=== PATIENT | male | born 1970 | race Caucasian/White ===

== ENCOUNTER → 2018-06-17 05:57 | Emergency (ER) | payer OTHER ==
[~2018-06-17 05:57] MED LIST: HYDROmorphone INJ* 2 MG/ML CARPUJECT SYRINGE IV SLOW PU ONE; Ketorolac INJ* 30 MG/ML 1 ML VIAL IV PUSH ONE; Morphine INJ* 2 MG/ML 1 ML SYRINGE (TWO MG - NEW SYRINGE VERSION) IV ONE; Morphine INJ* 2 MG/ML 1 ML SYRINGE (TWO MG - NEW SYRINGE VERSION) ONE; NS 0.9% 1000 ML* 1,000 ML IV ONE; Ondansetron INJ* 2 MG/ML VIAL IV ONE
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
[2018-06-17 07:19] LABS: Hematocrit 42 % (42-52); Hemoglobin 14.8 g/dl (14.0-18.0); Mean Corpuscular HGB Conc 35 g/dl (31-36); Mean Corpuscular Hemoglobin 32 pg (27-31); Mean Corpuscular Volume 92 fL (80-94); Mean Platelet Volume 7.6 um3 (7.4-10.4); Platelet Count 216 10^3/ul (150-450); Red Blood Count 4.61 10^6/ul (4.00-5.40); Red Cell Distribution Width 13 % (10.5-15); White Blood Count 9.2 10^3/ul (3.5-10.8)
[2018-06-17 07:34] LABS: EGFR Non-African American 83.7 (>60)
[2018-06-17 07:38] LABS: INR 0.97 (0.77-1.02)
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
[2018-06-17 09:39] VITALS: BP 101/60
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
== END | disposition home or self-care (01) ==
LOC: ED 05:57
CPT/HCPCS: 36415; 70450; 70486; 70490; 80048; 85027; 85610; 85730; J1170; J1885; J2270; J2405

== ENCOUNTER 2018-06-19 11:36 | Emergency (ER) | payer OTHER ==
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
[2018-06-19 12:18] VITALS: BP 129/79
== END 2018-06-19 12:17 | disposition home or self-care (01) ==
LOC: ED 11:36
DX: S02.609A Fracture of mandible, unspecified, initial encounter for closed fracture (principal); Y04.8XXA Assault by other bodily force, initial encounter; Y92.9 Unspecified place or not applicable; F17.200 Nicotine dependence, unspecified, uncomplicated
CPT/HCPCS: 99282

== ENCOUNTER → 2018-07-15 | Emergency (ER) | payer OTHER ==
--- NOTE | 2018-07-15 17:10 | ED ---
Throat Pain/Nasal Congestion - HPI Summary HPI Summary: This patient is a 47 year old M presenting to [facility] with a chief complaint of right-sided dental pain that began 5 days ago. The patient rates the pain 9/10 in severity. Symptoms aggravated by eating and swallowing. Symptoms alleviated by nothing. Patient denies fever. Patient states that he was diagnosed with a mandibular fracture one month ago. - History of Current Complaint Chief Complaint: EDHeadInjury Time Seen by Provider: 07/15/18 16:49 Hx Obtained From: Patient Onset/Duration: Sudden Onset, Lasting Days, Still Present Severity: Moderate Cough: None - Allergies/Home Medications Allergies/Adverse Reactions: Allergies Allergy/AdvReac Type Severity Reaction Status Date / Time amoxicillin [From Augmentin] Allergy GI Upset Verified 07/15/18 14:45 clavulanic acid Allergy GI Upset Verified 07/15/18 14:45 [From Augmentin] ENVIRONMENTAL Allergy Sneezing Uncoded 06/17/18 06:05 PMH/Surg Hx/FS Hx/Imm Hx Previously Healthy: No Endocrine/Hematology History: Denies: Hx Anticoagulant Therapy, Hx Blood Disorders Respiratory History: Reports: Hx Sleep Apnea Musculoskeletal History: Denies: Hx Scoliosis Sensory History: Reports: Hx Contacts or Glasses - GLASSES Denies: Hx Hearing Aid Opthamlomology History: Reports: Hx Contacts or Glasses - GLASSES Neurological History: Denies: Hx Headaches, Other Neuro Impairments/Disorders Psychiatric History: Reports: Hx Depression - ON MEDICATION - Surgical History Surgery Procedure, Year, and Place: 1989 TESTICULAR TORSION SURGERY, [facility] [place] Hx Anesthesia Reactions: No Infectious Disease History: No Infectious Disease History: Denies: Hx Human Immunodeficiency Virus (HIV), Traveled Outside the [place] in Last 30 Days - Family History Known Family History: Negative: Renal Disease - Social History Occupation: Unemployed Lives: Alone Alcohol Use: Weekly Hx Substance Use: Yes Substance Use Type: Reports: Cocaine, Marijuana Hx Tobacco Use: Yes Smoking Status (MU): Current Some Day Smoker Review of Systems Negative: Fever Positive: Dental Pain All Other Systems Reviewed And Are Negative: Yes Physical Exam - Summary Physical Exam Summary: VITAL SIGNS: Reviewed. GENERAL: Patient is a well-developed and nourished male who is lying comfortable in the stretcher. Patient is not in any acute respiratory distress. HEAD AND FACE: No signs of trauma. No ecchymosis, hematomas or skull depressions. No sinus tenderness. EYES: PERRLA, EOMI x 2, No injected conjunctiva, no nystagmus. EARS: Hearing grossly intact. Ear canals and tympanic membranes are within normal limits. MOUTH: Oropharynx within normal limits. Small induration in the right side of the jaw. Multiple loose teeth. Airway is patent. No swelling of the tongue, lips , palate, or tongue NECK: Supple, trachea is midline, no adenopathy, no JVD, no carotid bruit, no c- spine tenderness, neck with full ROM. CHEST: Symmetric, no tenderness at palpation LUNGS: Clear to auscultation bilaterally. No wheezing or crackles. CVS: Regular rate and rhythm, S1 and S2 present, no murmurs or gallops appreciated. ABDOMEN: Soft, non-tender. No signs of distention. No rebound no guarding, and no masses palpated. Bowel sounds are normal. EXTREMITIES: FROM in all major joints, no edema, no cyanosis or clubbing. NEURO: Alert and oriented x 3. No acute neurological deficits. Speech is normal and follows commands. SKIN: Dry and warm Triage Information Reviewed: Yes Vital Signs On Initial Exam: Initial Vitals Temp Pulse Resp BP Pulse Ox 98 F 88 16 143/103 97 07/15/18 14:45 07/15/18 14:45 07/15/18 14:45 07/15/18 14:45 07/15/18 14:45 Vital Signs Reviewed: Yes Diagnostics - Vital Signs Vital Signs Temp Pulse Resp BP Pulse Ox 07/15/18 14:45 98 F 88 16 143/103 97 - Laboratory Lab Statement: Any lab studies that have been ordered have been reviewed, and results considered in the medical decision making process. - CT Maxillofacial CT CT Interpretation Completed By: Radiologist - Maxillofacial CT reveals, per radiologist, There is a comminuted fracture in the right parasymphyseal region extending to the right body of the mandible. This is adjacent to area of prior hardware. Additional oblique fracture is noted in the left ramus of the mandible extending adjacent to the coronoid process. In addition there appears to be a fracture of the lateral pterygoid plate as well as the lateral wall of the maxillary sinus. No air-fluid level is noted in the exact age of this is unclear. Large mucous retention cyst is noted in the left maxillary sinus. ED physician has reviewed this radiology report. Re-Evaluation - Re-Evaluation First Eval Re-Evaluation Time: 06:22 Change: Unchanged Comment: Discussed results and plan of care with patient. Patient's surgeon was Dr. Chung at [place]. EENT Course/Dx - Course Assessment/Plan: This patient is a 47 year old M presenting to [facility] with a chief complaint of right-sided dental pain that began 5 days ago. The patient rates the pain 9/10 in severity. Symptoms aggravated by eating and swallowing. Symptoms alleviated by nothing. Patient denies fever. Patient states that he was diagnosed with a mandibular fracture one month ago. Maxillofacial CT IMPRESSION: There is a comminuted fracture in the right parasymphyseal region extending to the right body of the mandible. This is adjacent to area of prior hardware. Additional oblique fracture is noted in the left ramus of the mandible extending adjacent to the coronoid process. In addition there appears to be a fracture of the lateral pterygoid plate as well as the lateral wall of the maxillary sinus. No air-fluid level is noted in the exact age of this is unclear. Large mucous retention cyst is noted in the left maxillary sinus. There is signs of abscess. There is large mucus retention. Patient will f/u with his Maxillofacial surgeon tomorrow at [facility] . Pain is controlled. I discussed all the findings and test results with the patient. Patient was instructed to return to the emergency room immediately if any of the symptoms return or worsens. Plan of care was discussed with the patient and understands and agrees. All questions were answered at patient satisfaction. There were no further complaints or concerns. Lung exam before discharge: CTA B/L. Good air exchange. No wheezing or crackles heard. CVS: S1 and S2 present. No murmurs appreciated. Patient is alert and oriented x 3. Patient is hemodynamically stable. Patient will be discharged home with follow up with ENT - Diagnoses Provider Diagnoses: Mandible fracture Discharge - Sign-Out/Discharge Documenting (check all that apply): Patient Departure - Discharge home - Discharge Plan Condition: Stable Disposition: HOME Patient Education Materials: Jaw Fracture in Adults (ED) Referrals: Dane Alvarez MD [Primary Care Provider] - 3 Days Additional Instructions: RETURN TO THE EMERGENCY DEPARTMENT FOR NEW OR WORSENING SYMPTOMS - Billing Disposition and Condition Condition: STABLE Disposition: Home - Attestation Statements Document Initiated by Scribe: Yes Documenting Scribe: Amelia Rodriguez Provider For Whom Scribe is Documenting (Include Credential): Reji David MD Scribe Attestation: I, Amelia Rodriguez, scribed for Reji David MD on 07/20/18 at 2105. Scribe Documentation Reviewed: Yes Provider Attestation: The documentation as recorded by the scribeAmelia accurately reflects the service I personally performed and the decisions made by me, Reji David MD
--- NOTE | 2018-07-15 17:56 | RAD ---
Indication: Jaw pain. CT of the facial bones was obtained in the axial plane. Sagittal and coronal reconstructed images were obtained. There is a comminuted fracture of the right mandible in the parasymphyseal region. The fracture line is comminuted and extends into the body of the mandible both medially and laterally.. The right ramus of the mandible is intact. Comminuted fracture of the left ramus of the mandible is noted extending just adjacent to the coronoid process. There is evidence of prior surgery with multiple surgical hardware in the right parasymphyseal region.. Temporomandibular joints are grossly intact. In addition there appears to be the fracture extending into the lateral pterygoid plate and probable lateral wall of the orbit although the age of this is undetermined as there is no fluid level in the left maxillary sinus. The right pterygoid plates are intact. The nasal arch and nasal septum, orbits, ethmoid air cells, sphenoid and frontal sinuses are intact. Mastoid air cells are intact with no evidence of basilar skull fracture. The soft tissues of the neck demonstrates scattered lymph nodes. Soft tissue swelling is noted in the area of the right body of the mandible where prior fracture is present. Mucus retention cyst is noted in the left maxillary sinus. Submandibular glands are grossly unremarkable. IMPRESSION: There is a comminuted fracture in the right parasymphyseal region extending to the right body of the mandible. This is adjacent to area of prior hardware. Additional oblique fracture is noted in the left ramus of the mandible extending adjacent to the coronoid process. In addition there appears to be a fracture of the lateral pterygoid plate as well as the lateral wall of the maxillary sinus. No air-fluid level is noted in the exact age of this is unclear. Large mucous retention cyst is noted in the left maxillary sinus.
[2018-07-15 19:21] VITALS: BP 146/87
== END | disposition home or self-care (01) ==
LOC: ED 14:37
DX: S02.601A Fracture of unspecified part of body of right mandible, initial encounter for closed fracture (principal); X58.XXXD Exposure to other specified factors, subsequent encounter; Y92.9 Unspecified place or not applicable; F32.9 Major depressive disorder, single episode, unspecified; F17.200 Nicotine dependence, unspecified, uncomplicated
CPT/HCPCS: 70486; 99282

== ENCOUNTER 2019-01-30 14:36 | Emergency (ER) | payer OTHER ==
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
[2019-01-30 16:27] VITALS: BP 139/78
== END 2019-01-30 16:26 | disposition home or self-care (01) ==
LOC: ED 14:36
DX: F41.9 Anxiety disorder, unspecified (principal); F32.9 Major depressive disorder, single episode, unspecified; Z88.3 Allergy status to other anti-infective agents; Z79.899 Other long term (current) drug therapy; Z87.891 Personal history of nicotine dependence
CPT/HCPCS: 99284

== ENCOUNTER 2019-07-30 11:21 | Day surgery (SDC) | payer OTHER ==
[~2019-07-30 11:21] MED LIST changes: +Buffered Lidocaine 1% SYRIN* 1 ML/SYRINGE INTRADERM ONE; -HYDROmorphone INJ* 2 MG/ML CARPUJECT SYRINGE IV SLOW PU ONE; -Ketorolac INJ* 30 MG/ML 1 ML VIAL IV PUSH ONE; +Lactated Ringers 1000 ML Bag* 1,000 ML IV SCH; +Midazolam* 1 MG/ML 5 ML VIAL (5 MG) ONE; -Morphine INJ* 2 MG/ML 1 ML SYRINGE (TWO MG - NEW SYRINGE VERSION) IV ONE; -Morphine INJ* 2 MG/ML 1 ML SYRINGE (TWO MG - NEW SYRINGE VERSION) ONE; -NS 0.9% 1000 ML* 1,000 ML IV ONE; -Ondansetron INJ* 2 MG/ML VIAL IV ONE; +fentaNYL* 50 MCG/ML 2 ML VIAL (100 MCG VIAL) ONE
[2019-07-30] MEDS ORDERED: Bupivacaine 0.5% SDV PF* 30ML VIAL ONE (13:09)
[2019-07-30] MEDS ORDERED: Lidocaine 1% INJ* 10 MG/ML 30 ML SDV ONE (13:10)
[2019-07-30] MEDS ORDERED: Propofol* 10 MG/ML 20 ML BTL ONE (13:37)
[2019-07-30 14:32] VITALS: BP 104/74
--- NOTE | 2019-07-31 01:14 | OP ---
DATE OF OPERATION: 07/30/19 [facility] DATE OF : 74 SURGEON: Nell Alexander MD GAUGE MACHINE OPERATOR: ZULMA Mendoza ANESTHESIA: Local MAC. PRE-OP DIAGNOSIS: Right trigger thumb and right carpal tunnel syndrome. POST-OP DIAGNOSIS: Right trigger thumb and right carpal tunnel syndrome. OPERATIVE PROCEDURE: Right trigger thumb release and right carpal tunnel release. ESTIMATED BLOOD LOSS: Zero. TOURNIQUET TIME: About 15 minutes. INDICATION FOR PROCEDURE: Noman is a 48-year-old male who has triggering and locking of his right thumb and has right carpal tunnel syndrome. He presents for release of both operative procedure. DESCRIPTION OF PROCEDURE: The patient was brought to the operating room and was given a sedation anesthetic and local infiltration of 10 cc of 1% plain lidocaine overlying the A1 reid of the right thumb and an additional 10 cc of 1% plain lidocaine overlying the transverse carpal ligament. The skin of his right upper extremity was prepped and draped in the usual sterile fashion. The upper extremity was exsanguinated and the tourniquet elevated to 250 mmHg. A transverse incision was made centered over the A1 reid of the right thumb. We dissected bluntly through the subcutaneous tissue down to the thumb reid. The digital neurovascular bundles were retracted by the surgical instrument technician, Rosalinda Bhatia. The A1 reid was incised longitudinally completely releasing the flexor tendon, which was in good condition. The wound was irrigated and the skin edges reapproximated with 4-0 nylon suture. Next, a longitudinal incision was made in the palm in line with the ring finger. We dissected through the subcutaneous tissue down to the transverse carpal ligament. The ligament was divided sharply with knife and then more proximally with scissors. The nerve was dissected free from the surrounding tissue and there was an area of moderate compression at the mid portion of the ligament. The wound was irrigated and the skin edges reapproximated with 4-0 nylon suture. The wound was dressed with Xeroform, 4x4, Webril, and an Shyam wrap. The patient tolerated the procedure well and was brought to the recovery room in good condition. [id number]/[facility] #: [id number] MTDD
== END 2019-07-30 14:43 | disposition home or self-care (01) ==
LOC: OREAST 11:21
PROVIDERS: ATTEND Orthopaedic Surgery
DX: G56.01 Carpal tunnel syndrome, right upper limb (principal); M65.311 Trigger thumb, right thumb; K21.9 Gastro-esophageal reflux disease without esophagitis; M19.90 Unspecified osteoarthritis, unspecified site; F41.8 Other specified anxiety disorders; Z87.891 Personal history of nicotine dependence; M77.02 Medial epicondylitis, left elbow
CPT/HCPCS: J2250; J2704; J3010; J3490